=== PATIENT | male | born 1960 | race Caucasian/White ===

== ENCOUNTER 2018-08-17 06:20 | Day surgery (SDC) | payer OTHER ==
[2018-08-17] MEDS ORDERED: LACTATED RINGERS 1,000 ML IV ONE ×2 (06:50→08:05)
[2018-08-17] MEDS ORDERED: fentaNYL 250 MCG/5 ML VIAL IVP ONE (07:39)
[2018-08-17] MEDS ORDERED: MIDAZOLAM 2 MG/2 ML VIAL IVP ONE (07:39)
[2018-08-17 08:34] VITALS: BP 115/94
== END 2018-08-17 06:21 | disposition home or self-care (01) ==
LOC: SDS 06:20
PROVIDERS: ATTEND Surgery
PROC: 0DJD8ZZ Inspection of Lower Intestinal Tract, Via Natural or Artificial Opening Endoscopic (ICD-10-PCS; principal; 2018-08-17 07:30)
DX: R19.5 Other fecal abnormalities (principal); K64.8 Other hemorrhoids; E66.9 Obesity, unspecified; Z68.32 Body mass index [BMI] 32.0-32.9, adult; Z80.9 Family history of malignant neoplasm, unspecified
CPT/HCPCS: 45378; J3010; J7120

== ENCOUNTER 2020-03-26 14:54 | Outpatient (CLI) | payer OTHER ==
[2020-03-26 20:10] LABS: ALBUMIN 4.4 g/dL (3.2-5.5); ALBUMIN/GLOBULIN RATIO 1.8 (1.0-2.2); CALCIUM 9.1 mg/dL (8.5-10.3); CREATININE 1.1 mg/dL (0.6-1.2); CRP - C-REACTIVE PROTEIN 1.7 mg/dL (0-1.0); TOTAL PROTEIN 6.9 g/dL (6.7-8.2); URIC ACID 8.4 mg/dL (2.6-7.2)
--- NOTE | 2020-03-27 15:28 | XRAY Report ---
PROCEDURE: Hand 3 View BILAT INDICATIONS: RIGHT HAND PAIN TECHNIQUE: 3 views of the hand(s) acquired. COMPARISON: Bilateral FINDINGS: Bones: No fractures or dislocations. No suspicious bony lesions. Right There are scattered areas of overall moderate IP degenerative narrowing, most notable at the th ird DIP joint. Minimal appearance of periarticular lucencies are noted scattered at the IP joints mos t notable at the first PIP as well as the fourth DIP and fifth PIP and DIP joints. Left: There are moderate areas of scattered IP degenerative narrowing. Minimal appearance of perivent ricular lucencies are present most notable at the fourth and fifth PIP joints. Soft tissues: No suspicious soft tissue calcifications. IMPRESSION: Bilateral IP joint space narrowing most suggestive of arthritis. Small paratracheal lucencies are pre sent bilaterally suggestive of subchondral cysts. However, erosive changes cannot be definitively exc luded. Reviewed by: Donita Hale MD on 03/27/2020 3:27 PM PST Approved by: Donita Hale MD on 03/27/2020 3:27 PM PST Station ID: [id number]
== END 2020-03-26 14:55 | disposition home or self-care (01) ==
LOC: DI.S 14:54
PROVIDERS: ATTEND Nurse Practitioner Family
DX: M25.841 Other specified joint disorders, right hand (principal); M79.641 Pain in right hand; M10.9 Gout, unspecified
CPT/HCPCS: 36415; 80053; 84550; 85651; 86140

== ENCOUNTER 2020-04-04 09:02 | Outpatient (CLI) | payer OTHER ==
--- NOTE | 2020-04-04 12:09 | XRAY Report ---
PROCEDURE: Hips 2V BILAT INDICATIONS: PAIN IN UNSPECIFIED HIP TECHNIQUE: 2 views of the left hip and right hip were acquired. COMPARISON: None. FINDINGS: Bones: No fractures or dislocations. No suspicious bony lesions. The visualized pelvic ring appear s intact. Deformity of the right iliac crest is likely sequelae of old injury. Mild bilateral hip and sacroiliac joint degeneration. Soft tissues: No suspicious soft tissue calcifications or masses. Calcification of the right common femoral artery consistent with atherosclerosis. IMPRESSION: Mild degenerative disease in hips and tibial joints laterally. Reviewed by: Delfina Avina MD on 04/04/2020 12:07 PM PST Approved by: Delfina Avina MD on 04/04/2020 12:07 PM PST Station ID: [id number]
--- NOTE | 2020-04-04 14:45 | CT Report ---
PROCEDURE: UPPER EXTREMITY WO - RT INDICATIONS: PAIN IN SHLDR TECHNIQUE: Noncontrast 3 mm axial sections acquired of the , with coronal and sagittal reformats. COMPARISON: None. FINDINGS: Image quality: Excellent. Bones: No fracture. Severe glenohumeral degenerative joint disease, with near [id number] appearanc e, spurring, sclerosis and subchondral cystic changes. Anatomic alignment is present. There is severe AC joint degeneration. A metallic screw is seen adjacent to the scapular body. Multiple chronic akua icated loose body seen in the axillary pouch and probably the subscapular recess. Soft tissues: Visualized right lung unremarkable IMPRESSION: Severe degenerative joint disease. Multiple loose bodies as above Incidentally noted metallic screw adjacent to the scapular body Reviewed by: Cem Luu MD on 04/04/2020 2:44 PM PST Approved by: Cem Luu MD on 04/04/2020 2:44 PM PST Station ID: [id number]
--- NOTE | 2020-04-04 16:12 | CT Report ---
PROCEDURE: UPPER EXTREMITY WO - LT INDICATIONS: PAIN IN SHLDR TECHNIQUE: Noncontrast 3 mm axial sections acquired of the left shoulder, with coronal and sagittal reformats. COMPARISON: None. FINDINGS: Image quality: Excellent. Bones: No acute fracture. Postsurgical changes related to left shoulder arthroplasty, in expected al ignment. No evidence of hardware failure or loosening. Acromioclavicular degenerative joint disease. Soft tissues: Visualized left lung appears grossly unremarkable. IMPRESSION: Expected postoperative alignment of left shoulder arthroplasty. No evidence of hardware loosening. Acromioclavicular degenerative joint disease. Reviewed by: Cem Luu MD on 04/04/2020 4:11 PM PST Approved by: Cem Luu MD on 04/04/2020 4:11 PM PST Station ID: [id number]
== END 2020-04-04 09:03 | disposition home or self-care (01) ==
LOC: DI 09:02
PROVIDERS: ATTEND Nurse Practitioner Family
DX: M16.0 Bilateral primary osteoarthritis of hip (principal); M19.011 Primary osteoarthritis, right shoulder; M24.011 Loose body in right shoulder; M19.012 Primary osteoarthritis, left shoulder; Z96.612 Presence of left artificial shoulder joint

== ENCOUNTER 2020-07-17 10:13 | Outpatient (CLI) | payer OTHER ==
--- NOTE | 2020-07-17 10:59 | XRAY Report ---
PROCEDURE: Lumbar Spine 2 View INDICATIONS: LUMBAR PAIN TECHNIQUE: 2 views of the lumbar spine were acquired. COMPARISON: None. FINDINGS: Bones: 5 [id number] vertebrae are present. There are multilevel degenerative changes of the sweetie mbar spine. There is facet arthrosis in the lower lumbar spine. Grade 1 anterolisthesis of L4-5 is li criss secondary to underlying facet arthrosis. There is normal bony alignment. No vertebral body comp ression fractures. No suspicious bony lesions. There is mild disc space narrowing at L1-2, L2-3, an d L4-5. Soft tissues: Overlying bowel gas pattern is normal. No suspicious soft tissue calcifications. The aorta has atherosclerotic calcifications. The patient is status post cholecystectomy. IMPRESSION: 1. Multilevel degenerative changes of the lumbar spine. 2. Degenerative disc disease at L1-2, L2-3, and L4-5. 3. 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 Reviewed by: Amauri Garcia on 07/17/2020 10:58 AM PDT Approved by: Amauri Garcia on 07/17/2020 10:58 AM PDT Station ID: [id number]
== END 2020-07-17 10:14 | disposition home or self-care (01) ==
LOC: DI.S 10:13
PROVIDERS: ADMIT Internal Medicine; ATTEND Nurse Practitioner Family
DX: M43.16 Spondylolisthesis, lumbar region (principal); M51.36 Other intervertebral disc degeneration, lumbar region